=== PATIENT | female | born 1940 | race Two or more races ===

== ENCOUNTER 2018-06-25 17:57 | Emergency (ER) | payer MEDICARE, OTHER ==
[~2018-06-25] VITALS: Ht 157.5 cm; Wt 62.9 kg
[~2018-06-25 17:57] MED LIST: ASCO500T8 PO; ASPI-496 PO; CALC-255 PO; CARV6.252 PO; ROSU5TAB PO; UBID10CA5 PO; VALS1TAB22 PO
[2018-06-25] MEDS ORDERED: NITROGLYCERIN OINT 2%, 1GM TP ONE (18:30)
[2018-06-25] MEDS ORDERED: hydrALAzine 20 MG/ML, 1ML IV ONE (18:30)
[2018-06-25] MEDS ORDERED: SODIUM CHLORIDE FLUSH 10ML SYR IVF ONE (18:30)
[2018-06-25] MEDS ORDERED: MORPHINE SULFATE 4 MG/ML, 1ML IVPush PRN (18:30)
[2018-06-25] MEDS ORDERED: ASPIRIN 81 MG TABLET CHEW PO ONE (18:30)
[2018-06-25] MEDS ORDERED: ASPIRIN 81 MG TABLET EC ONE (18:35)
[2018-06-25] MEDS ORDERED: NITROGLYCERIN SINGLE TAB 0.4 MG SL ONE (18:36)
[2018-06-25 18:39] LABS: BASOPHILS # (AUTO) 0.01 x10^3/uL (0-0.1); BASOPHILS % (AUTO) 0 % (0-1); EOSINOPHILS # (AUTO) 0.14 x10^3/uL (0-0.4); EOSINOPHILS % (AUTO) 2 % (1-7); LYMPHOCYTES # (AUTO) 1.52 x10^3/uL (1-3.4); LYMPHOCYTES % (AUTO) 19 % (22-44); MD NO; MEAN CORPUSCULAR HEMOGLOBIN 27.1 pg (27.0-34.8); MEAN CORPUSCULAR HGB CONC 33.8 g/dL (32.4-35.8); MEAN CORPUSCULAR VOLUME 80.4 fL (80-100); MEAN PLATELET VOLUME 7.7 fL (7.4-10.4); MONOCYTES # (AUTO) 0.25 x10^3/uL (0.2-0.8); MONOCYTES % (AUTO) 3 % (2-9); NEUTROPHILS # (AUTO) 6.21 x10^3/uL (1.8-6.8); NEUTROPHILS % (AUTO) 76 % (42-75); PLATELET COUNT 239 x10^3/uL (130-400); RED BLOOD COUNT 4.71 x10^6/uL (3.82-5.3); RED CELL DISTRIBUTION WIDTH 14.4 % (9.6-15.2)
[2018-06-25] MEDS ORDERED: ASPIRIN 81 MG TABLET CHEW ONE (18:42)
[2018-06-25] MEDS ORDERED: hydrALAzine 20 MG/ML, 1ML ONE (18:51)
[2018-06-25 18:53] LABS: ALANINE AMINOTRANSFERASE 29 U/L (12-78); ALBUMIN 3.8 g/dL (3.4-5.0); ANION GAP 10 mmol/L (5-15); CALCIUM 8.8 mg/dL (8.5-10.1); CHLORIDE 98 mmol/L (98-107); CREATININE 0.69 mg/dL (0.55-1.02)
[2018-06-25 18:57] LABS: ALKALINE PHOSPHATASE 59 U/L (45-117); BILIRUBIN,TOTAL 0.8 mg/dL (0.2-1.0); TOTAL PROTEIN 7.5 g/dL (6.4-8.2); TROPONIN I < 0.015 ng/mL (0.000-0.045)
[2018-06-25 19:10] VITALS: BP 139/64
== END 2018-06-25 19:38 | disposition home or self-care (01) ==
LOC: ED 18:30
DX: S39.012A Strain of muscle, fascia and tendon of lower back, initial encounter (principal); I10 Essential (primary) hypertension; R07.2 Precordial pain; E78.00 Pure hypercholesterolemia, unspecified; R51 Headache; Z90.710 Acquired absence of both cervix and uterus; X58.XXXA Exposure to other specified factors, initial encounter; Y93.89 Activity, other specified; Y92.89 Other specified places as the place of occurrence of the external cause; Y99.8 Other external cause status
CPT/HCPCS: 36415; 71045; 80053; 83880; 84484; 85025; 93005; 96374; 99285; J0360

== ENCOUNTER 2019-10-30 23:57 | Inpatient (IN) | payer MEDICARE, OTHER ==
[~2019-10-30] VITALS: Ht 144.8 cm; Wt 59.5 kg
[2019-10-31] MEDS ORDERED: MAALOX/HYOSCYAMINE/LIDOCAINE 45 ML BTL PO ONE (00:30)
[2019-10-31] MEDS ORDERED: MAALOX/HYOSCYAMINE/LIDOCAINE 45 ML BTL ONE (00:36)
[2019-10-31 00:40] LABS: BASOPHILS # (AUTO) 0.01 x10^3/uL (0-0.1); BASOPHILS % (AUTO) 0 % (0-1); EOSINOPHILS % (AUTO) 0 % (1-7); LYMPHOCYTES # (AUTO) 1.08 x10^3/uL (1-3.4); LYMPHOCYTES % (AUTO) 35 % (22-44); MD NO; MEAN CORPUSCULAR HEMOGLOBIN 26.7 pg (27.0-34.8); MEAN CORPUSCULAR HGB CONC 33.4 g/dL (32.4-35.8); MEAN CORPUSCULAR VOLUME 79.7 fL (80-100); MEAN PLATELET VOLUME 7.5 fL (7.4-10.4); MONOCYTES # (AUTO) 0.41 x10^3/uL (0.2-0.8); MONOCYTES % (AUTO) 14 % (2-9); NEUTROPHILS # (AUTO) 1.55 x10^3/uL (1.8-6.8); NEUTROPHILS % (AUTO) 51 % (42-75); PLATELET COUNT 199 x10^3/uL (130-400); RED BLOOD COUNT 4.71 x10^6/uL (3.82-5.3); RED CELL DISTRIBUTION WIDTH 13.3 % (9.6-15.2)
[2019-10-31 00:52] LABS: ALANINE AMINOTRANSFERASE 26 U/L (12-78); ALBUMIN 3.7 g/dL (3.4-5.0); CALCIUM 8.7 mg/dL (8.5-10.1); CHLORIDE 82 mmol/L (98-107); CREATININE 0.67 mg/dL (0.55-1.02)
[2019-10-31] MEDS ORDERED: ONDANSETRON ODT 4 MG ONE (00:53)
[2019-10-31 00:54] LABS: RAPID INFLUENZA A POSITIVE (Negative); RAPID INFLUENZA B Negative (Negative)
[2019-10-31 00:54] LABS: ALKALINE PHOSPHATASE 55 U/L (45-117); BILIRUBIN,TOTAL 0.6 mg/dL (0.2-1.0); TOTAL PROTEIN 7.4 g/dL (6.4-8.2)
[2019-10-31 00:58] LABS: ANION GAP 12 mmol/L (5-15)
--- NOTE | 2019-10-31 01:01 | NUR ---
Patient presents to ER c/o body aches with N/V/D and acid reflux x3days. She also states she feels weak and dizzy. Patient states she has had a fever also but is afebrile today. Patient is in NAD. Repirations even and unlabored.
[2019-10-31] MEDS ORDERED: ONDANSETRON ODT 4 MG PO ONE (01:30)
[2019-10-31 01:49] LABS: MICROSCOPIC AUTO
[2019-10-31 01:51] LABS: CULTURE INDICATED? YES
[2019-10-31 01:59] LABS: OSMOLALITY,URINE 478 mOsm/kg (500-850)
[2019-10-31] MEDS ORDERED: SODIUM CHLORIDE 0.9% 1,000 ML IV ONE (02:17)
[2019-10-31] MEDS ORDERED: POTASSIUM CHLORIDE 20 MEQ TAB.ER.PRT ONE (02:23)
[2019-10-31] MEDS ORDERED: CEFTRIAXONE PMX 1GM/50ML 50 ML ONE (02:23)
[2019-10-31] MEDS ORDERED: CEFTRIAXONE PMX 1GM/50ML 50 ML IV ONE (02:30)
[2019-10-31] MEDS ORDERED: POTASSIUM CHLORIDE 20 MEQ TAB.ER.PRT PO ONE ×2 (02:30→09:00)
--- NOTE | 2019-10-31 03:04 | NUR ---
Report given to Palma. Patient to be tranferred to room 517.
--- NOTE | 2019-10-31 03:07 | NUR ---
Patient is nauseous and does not feel as if she can keep pills or liquid down. Potassium held; informed ERP.
[2019-10-31] MEDS ORDERED: SODIUM CHLORIDE 0.9% 1,000 ML IV SCH (03:34)
[2019-10-31 03:37] VITALS: BP 155/68
[2019-10-31] MEDS ORDERED: AZIL1TAB3 PO ×2 (03:58→04:53)
[2019-10-31] MEDS ORDERED: POTASSIUM CHLORIDE 40 MEQ in SODIUM CHLORIDE 0.9% 500 ML IV ONE (04:00)
[2019-10-31] MEDS ORDERED: hydrALAzine 20 MG/ML, 1ML IVPush PRN (04:00)
[2019-10-31] MEDS ORDERED: ACETAMINOPHEN 325 MG TABLET PO PRN ×2 (04:00→08:30)
[2019-10-31] MEDS ORDERED: morphine SULFATE 10 MG/ML, 1ML IVPush PRN (04:00)
[2019-10-31] MEDS ORDERED: OSELTAMIVIR 75 MG CAPSULE PO SCH (04:00)
[2019-10-31] MEDS ORDERED: ONDANSETRON 2MG/ML, 2ML IVPush PRN (04:00)
[2019-10-31] MEDS: CEFTRIAXONE PMX 1GM/50ML 50 ML IV SCH (04:28)
[2019-10-31] MEDS: ENOXAPARIN 40 MG/0.4 ML SQ SCH (05:06)
[2019-10-31 05:30] LABS: CHLORIDE 83 mmol/L (98-107)
[2019-10-31 05:36] LABS: ANION GAP 11 mmol/L (5-15); CALCIUM 8.4 mg/dL (8.5-10.1); CREATININE 0.61 mg/dL (0.55-1.02)
[2019-10-31 08:09] VITALS: BP 138/72
[2019-10-31] MEDS ORDERED: AZILSARTAN HOMEMEDPO SCH (09:00)
[2019-10-31] MEDS ORDERED: FAMOTIDINE 20 MG/2 ML IVPush SCH (09:00)
[2019-10-31] MEDS ORDERED: CHLORTHALIDONE HOMEMEDPO SCH (09:00)
[2019-10-31] MEDS ORDERED: FAMOTIDINE 20 MG TABLET PO SCH (09:00)
[2019-10-31] MEDS ORDERED: VALSARTAN 80 MG TABLET PO SCH (09:00)
[2019-10-31] MEDS ORDERED: HYDROCHLOROTHIAZIDE 12.5 MG CAPSULE PO SCH (09:00)
[2019-10-31] MEDS: LACTOBACILLUS CHEW TABLET PO SCH ×3 (10:56→20:59)
[2019-10-31] MEDS: CARVEDILOL 6.25 MG TABLET PO SCH ×2 (11:08→20:59)
[2019-10-31] MEDS: OSELTAMIVIR 75 MG CAPSULE PO SCH ×2 (11:08→20:59)
[2019-10-31 14:02] VITALS: BP 104/62
[2019-10-31 18:47] VITALS: BP 126/65
[2019-10-31 20:55] VITALS: BP 125/72
[2019-10-31] MEDS ORDERED: ASPIRIN 81 MG TABLET EC PO SCH (21:00)
[2019-10-31] MEDS ORDERED: ATORVASTATIN 20 MG TABLET PO SCH (21:00)
[2019-11-01 01:21] VITALS: BP 137/73
[2019-11-01] MEDS ORDERED: SODIUM CHLORIDE 0.9% 1,000 ML IV SCH (03:34)
[2019-11-01] MEDS: ENOXAPARIN 40 MG/0.4 ML SQ SCH (04:28)
[2019-11-01] MEDS: CEFTRIAXONE PMX 1GM/50ML 50 ML IV SCH (04:28)
[2019-11-01 05:54] LABS: BASOPHILS # (AUTO) 0.01 x10^3/uL (0-0.1); BASOPHILS % (AUTO) 0 % (0-1); EOSINOPHILS % (AUTO) 0 % (1-7); LYMPHOCYTES # (AUTO) 1.25 x10^3/uL (1-3.4); LYMPHOCYTES % (AUTO) 37 % (22-44); MD NO; MEAN CORPUSCULAR HEMOGLOBIN 26.5 pg (27.0-34.8); MEAN CORPUSCULAR HGB CONC 33.4 g/dL (32.4-35.8); MEAN CORPUSCULAR VOLUME 79.3 fL (80-100); MEAN PLATELET VOLUME 7.7 fL (7.4-10.4); MONOCYTES % (AUTO) 12 % (2-9); NEUTROPHILS # (AUTO) 1.74 x10^3/uL (1.8-6.8); NEUTROPHILS % (AUTO) 51 % (42-75); PLATELET COUNT 183 x10^3/uL (130-400); RED BLOOD COUNT 4.79 x10^6/uL (3.82-5.3); RED CELL DISTRIBUTION WIDTH 13.9 % (9.6-15.2)
[2019-11-01 05:59] LABS: CHLORIDE 102 mmol/L (98-107)
[2019-11-01 06:04] LABS: ANION GAP 7 mmol/L (5-15); CALCIUM 8.4 mg/dL (8.5-10.1); CREATININE 0.68 mg/dL (0.55-1.02)
[2019-11-01] MEDS: LACTOBACILLUS CHEW TABLET PO SCH (07:40)
[2019-11-01] MEDS: OSELTAMIVIR 75 MG CAPSULE PO SCH (07:41)
[2019-11-01 08:44] VITALS: BP 129/72
[2019-11-01] MEDS ORDERED: AMOXICILLIN 500 MG CAPSULE PO SCH (09:00)
[2019-11-01] MEDS ORDERED: DOXYCYCLINE 100MG TABLET PO SCH (09:00)
[2019-11-01] MEDS ORDERED: FAMOTIDINE 20 MG TABLET PO SCH (09:00)
[2019-11-01] MEDS: CARVEDILOL 6.25 MG TABLET PO SCH (09:17)
[2019-11-01] MEDS ORDERED: DOXY100T PO (09:45)
[2019-11-01] MEDS ORDERED: AMOX-291 PO (09:45)
[2019-11-01] MEDS ORDERED: OSEL75CA14 PO (09:45)
[2019-11-01] MEDS ORDERED: ACID1TAB7 PO (09:45)
[2019-11-02] MEDS ORDERED: SODIUM CHLORIDE 0.9% 1,000 ML IV SCH (03:34)
== END 2019-11-01 11:22 | disposition home or self-care (01) | DRG 194 ==
LOC: ED 10-31 02:36 → EDIP 10-31 02:40 → 5SO 10-31 04:12 → 4WST 10-31 18:45
PROVIDERS: ADMIT Family Medicine; ATTEND Family Medicine
DX: J10.1 Influenza due to other identified influenza virus with other respiratory manifestations (principal); E87.1 Hypo-osmolality and hyponatremia; N39.0 Urinary tract infection, site not specified; E87.6 Hypokalemia; D72.819 Decreased white blood cell count, unspecified; E78.00 Pure hypercholesterolemia, unspecified; E78.5 Hyperlipidemia, unspecified; G47.00 Insomnia, unspecified; G89.29 Other chronic pain; I10 Essential (primary) hypertension; Z86.19 Personal history of other infectious and parasitic diseases; Z87.440 Personal history of urinary (tract) infections; Z90.710 Acquired absence of both cervix and uterus
CPT/HCPCS: 36415; 71046; 80048; 80053; 81001; 83690; 83735; 83930; 83935; 85025; 87077; 87086; 87186; 87400; 93005; 96365; G0378; J0696; J1650; J3480; Q0162; J7030; J7040